=== PATIENT | female | born 1965 | race Caucasian/White ===

== ENCOUNTER 2016-11-21 08:27 | Day surgery (SDC) | payer OTHER ==
--- NOTE | 2016-11-16 19:12 | HP ---
PREOPERATIVE HISTORY AND PHYSICAL: DATE OF SURGERY/ADMISSION: 11/21/16 ATTENDING SURGEON: Ally Nova MD* (dictated by VIKASH Andre). PROCEDURE: Right wrist carpal tunnel release, right ring finger trigger finger release. CHIEF COMPLAINT: Right hand numbness and tingling, right ring finger triggering. HISTORY OF PRESENT ILLNESS: This is a 51-year-old female complaining of numbness and tingling in her right hand over several years now up to the past 10 years, but it has become more significant over the past several months. She reports that the numbness and tingling goes into the median nerve distribution of her hand and also sometimes travels more proximally. She had symptoms during the day and at night as well which awaken her at times. She is diabetic ; however, her diabetes is well controlled with medications. She is also complaining of triggering in the right ring finger that has been present for several months. She typically has tried to wear a splint on the finger to keep it in extension and this is helpful; however, she is not able to use her finger when she has the splint on. She is interested in proceeding with surgical intervention for both of these problems at this time and has consented to proceed with a right wrist carpal tunnel release and a right ring finger trigger finger release. PAST MEDICAL HISTORY: 1. Hypothyroidism. 2. Diabetes. 3. Hypercholesterolemia. 4. Depression. 5. Hot flashes related to menopause. PAST SURGICAL HISTORY: 1. Bilateral trigger thumb releases. 2. Tubal ligation. 3. Left carpal tunnel release. CURRENT MEDICATIONS: 1. Afluria preservative free 0.5 mL intramuscularly. 2. Altace 2.5 mg daily. 3. Aspirin 81 mg daily. 4. Atorvastatin calcium 40 mg daily. 5. Butalbital/acetaminophen/caffeine 1 tab q.6 hours p.r.n. headaches. 6. Citalopram hydrobromide 40 mg daily. 7. Fiber tablet daily. 8. Fluticasone propionate 50 mcg/ACT. 9. Gabapentin 300 mg 1 tab t.i.d. 10. Lantus 100 units/mL. 11. Levothyroxine sodium 100 mcg daily. 12. Lipitor 40 mg daily. 13. Magnesium 500 mg daily. 14. Metformin HCL ER 500 mg daily. 15. Multivitamin with iron daily. 16. Nicotine 21 mg/24 hours. 17. Vitamin D 1000 units 2 tabs daily. ALLERGIES: No known drug allergies. FAMILY MEDICAL HISTORY: Significant for diabetes and heart disease. SOCIAL HISTORY: The patient is not currently working. She is a current smoker , although she is trying to cut down. She smokes approximately a quater pack a day and also uses a vape. She uses marijuana on occasion and drinks alcohol on occasion. REVIEW OF SYSTEMS: General: Positive for night sweats related to menopause. Negative for fever or chills. No known anesthesia problems in the past. HEENT : Positive for migraine headaches. Negative for lightheadedness or syncopal episodes. Integumentary: Negative for abrasions, lesions or open wounds. Cardiothoracic: Negative for chest pain, palpitations or edema. Negative for hypertension. Pulmonary: Negative for shortness of breath with exertion, chronic cough or COPD. GI: Negative for nausea, vomiting, diarrhea, constipation or GERD. : Negative for nocturia, urinary frequency, urgency, history of UTIs or kidney problems. Musculoskeletal: Positive for current complaint. Negative for chronic or intermittent back pain or history of fractures. Neurological: Positive for diabetic neuropathy. Negative for history of seizure, stroke or epilepsy. Endocrine: Positive for diabetes and low thyroid. Hematologic: Negative for easy bruising, anemia, excessive bleeding, or history of DVT. Infectious Disease: Negative for history of MRSA, hepatitis C or HIV. PHYSICAL EXAMINATION GENERAL: Well-developed, well-nourished 51-year-old female in no acute distress. VITAL SIGNS: Height 5 feet 1 inch, weight 99 pounds. Pulse rate 70, blood pressure 108/72. HEENT: Normocephalic, atraumatic. Pupils are equal, round, and reactive to light and accommodation. Extraocular movements are intact. Throat is clear. NECK: Supple. No palpable lymph nodes. PULMONARY: Lungs are clear to auscultation bilaterally. No wheezes, rales or rhonchi. CARDIOTHORACIC: Regular rate and rhythm. S1, S2. No murmurs, rubs or gallops. No edema. ABDOMEN: Positive bowel sounds. Soft, nontender. MUSCULOSKELETAL: On exam of her right hand, there is no visible thenar wasting , but there is weakness with thumb abduction. She has a positive Phalen's test. Negative Tinel sign over the median nerve. Sensation is intact to light touch. She has tenderness to palpation at the A1 antoinette of the right ring finger. She has full range of motion, but reports a clicking sensation as she moves through flexion and extension. NEUROLOGIC: Alert and oriented x3. Cranial nerves II through XII are intact. Sensation is intact to light touch. IMAGING STUDIES: EMG nerve conduction study shows evidence of right carpal tunnel syndrome. IMPRESSION: Right carpal tunnel syndrome, right ring finger trigger finger. PLAN: The patient is scheduled to undergo a right wrist carpel tunnel release and a right ring finger trigger finger release with Dr. Nova on 11/21/16. She will return to the office in 10 to 14 days postop for followup and suture removal. A prescription for Ultracet was e-scribed to the patient's pharmacy for postoperative pain management. VIKASH ANDRE [id number]/[facility] #: [id number] [facility]
[~2016-11-21 08:27] MED LIST: Buffered Lidocaine 0.9% SYRIN* 5 ML/SYR SYRINGE INTRADERM ONE; Famotidine IV* 10 MG/ML 2 ML (20 mg) IV ONE; Lidocaine 1% INJ* 10 MG/ML 30 ML SDV ONE
[2016-11-21] MEDS ORDERED: Famotidine IV* 10 MG/ML 2 ML (20 mg) ONE (08:52)
[2016-11-21] MEDS ORDERED: fentaNYL* 50 MCG/ML 2 ML VIAL (100 MCG VIAL) ONE (09:35)
[2016-11-21] MEDS ORDERED: Lidocaine 2% PF * 5 ML VIAL ONE (09:36)
[2016-11-21] MEDS ORDERED: Propofol* 10 MG/ML 20 ML BTL IV PUSH ONE (09:36)
[2016-11-21] MEDS ORDERED: Midazolam* 1 MG/ML 2 ML VIAL (2 MG) ONE (09:36)
[2016-11-21] MEDS ORDERED: Ketorolac INJ* 30 MG/ML 1 ML VIAL IV PRN (09:45)
[2016-11-21] MEDS ORDERED: Acetaminophen TAB* 325 MG PO PRN (09:45)
[2016-11-21] MEDS ORDERED: oxyCODONE TAB* 5 MG TAB PO PRN (09:45)
[2016-11-21] MEDS ORDERED: fentaNYL* 50 MCG/ML 2 ML VIAL (100 MCG VIAL) IV PRN (09:45)
[2016-11-21] MEDS ORDERED: Ondansetron INJ* 2 MG/ML VIAL IV PRN (09:45)
[2016-11-21] MEDS ORDERED: EPHEDrine (Pressors)* 50 MG/ML VIAL ONE (09:59)
[2016-11-21 11:35] VITALS: BP 106/65
--- NOTE | 2016-11-22 00:05 | OP ---
DATE OF OPERATION: 11/21/16 [facility] DATE OF : 67 SURGEON: Ally Nova MD. [facility] MANAGER: VIKASH Andre ANESTHESIOLOGIST: Stanley Pickett MD ANESTHESIA: Local MAC. PRE-OP DIAGNOSIS: Right ring finger trigger and right carpal tunnel syndrome. POST-OP DIAGNOSIS: Right ring finger trigger and right carpal tunnel syndrome. OPERATIVE PROCEDURE: Right carpal tunnel release and right ring finger trigger release. ESTIMATED BLOOD LOSS: Zero. TOURNIQUET TIME: About 10 minutes. INDICATIONS FOR PROCEDURE: Taylor is a 51-year-old female with numbness and tingling in the median nerve distribution of her right hand. She presents for carpal tunnel release. She also has locking of the right ring finger and presents for ring finger trigger release. DESCRIPTION OF PROCEDURE: The patient was brought to the operating room, was given a sedation anesthetic and a local infiltration of 10 cc of 1% plain lidocaine in the palm of her right hand. The skin of her right hand and forearm was prepped and draped in the usual sterile fashion. The hand and forearm were exsanguinated and tourniquet elevated to 250 mmHg. A longitudinal incision was made in the palm in line with the ring finger, dissected through the subcutaneous tissue down to the transverse carpal ligament. The ligament was divided sharply with a knife and then more proximally with the scissors. The nerve was dissected free from the surrounding tissue and there was an area of moderate compression in the mid portion of the ligament. The wound was irrigated and the skin edges were reapproximated with 4-0 nylon suture. Next, a transverse incision was made centered over the A1 antoinette of the ring finger. We dissected bluntly through the subcutaneous tissue down to the A1 antoinette. The digital neurovascular bundles were retracted by the rn neurosurgical, Christina Beltran. The A1 antoinette was then incised longitudinally completely releasing the flexor tendons which were in good condition. The wound was irrigated and skin edges reapproximated with 4-0 nylon suture. The wound was dressed with Xeroform, 4x4, Webril, and an Travon wrap. The patient tolerated the procedure well and was brought to the recovery room in good condition. [id number]/[facility] #: [id number] [facility]
== END 2016-11-21 11:27 | disposition home or self-care (01) ==
LOC: OREAST 08:27
PROVIDERS: ATTEND Orthopaedic Surgery
DX: G56.01 Carpal tunnel syndrome, right upper limb (principal); M65.341 Trigger finger, right ring finger; E11.9 Type 2 diabetes mellitus without complications; Z79.4 Long term (current) use of insulin; Z79.84 Long term (current) use of oral hypoglycemic drugs; E78.00 Pure hypercholesterolemia, unspecified; F17.200 Nicotine dependence, unspecified, uncomplicated; Z79.891 Long term (current) use of opiate analgesic; G62.9 Polyneuropathy, unspecified
CPT/HCPCS: J2001; J2250; J2704; J3010